=== PATIENT | female | born 1965 | race Caucasian/White ===

== ENCOUNTER 2024-06-24 12:21 | Emergency (ER) | payer MEDICAID ==
[~2024-06-24] VITALS: Ht 167.6 cm; Wt 62.0 kg
[~2024-06-24 12:21] MED LIST: ACET-3161 PO; CIPR-263 PO; FURO40TA5 PO; GABA-532 PO; LEVVL SQ; MULT-278 PO; [UNRECOGNIZED DRUG - CODE] PO
[2024-06-24 12:26] VITALS: TEMP 98; O2SAT 96
[2024-06-24] MEDS ORDERED: LIDOCAINE HCL/EPINEPHRINE 1%-EPI 1:100,000 20 ML VIAL INFIL ONE (13:15)
[2024-06-24] MEDS: SODIUM CHLORIDE 0.9% 1,000 ML IV ONE (13:19)
[2024-06-24] MEDS: ONDANSETRON HCL 4MG/2ML INJ IV ONE (13:19)
[2024-06-24 13:33] LABS: BASOPHILS % 1.3 % (0.0-2.0); EOSINOPHILS % 2.1 % (0.0-5.0); HEMATOCRIT. 35.7 % (36.0-48.0); HEMOGLOBIN. 11.5 g/dL (12.0-16.0); LYMPHOCYTES % 16.5 % (20.0-50.0); MEAN CORPUSCULAR HEMOGLOBIN 29.9 pg (28.0-32.0); MEAN CORPUSCULAR HGB CONC 32.1 g/dL (31.0-37.0); MEAN PLATELET VOLUME 8.5 fl (7.4-10.4); MONOCYTES % 6.8 % (2.0-8.0); NEUTROPHILS % 73.3 % (40.0-76.0); PLATELET 141 x1000/uL (130-400); RED BLOOD CELL COUNT 3.84 mill/uL (4.2-5.4); RED CELL DISTRIBUTION WIDTH 19.4 % (11.6-14.6); WHITE BLOOD COUNT 5.9 x1000/uL (4.5-11.0)
[2024-06-24 13:42] LABS: POTASSIUM 3.9 mEq/L (3.5-5.1)
[2024-06-24 13:47] LABS: INR 0.9; PARTIAL THROMBOPLASTIN TIME < 21.0 sec (23.4-31.0)
[2024-06-24 13:48] LABS: CREATININE 3.2 mg/dL (0.6-1.0)
[2024-06-24 15:00] VITALS: BP 148/52; PULSE 83; RESP 14
== END 2024-06-24 15:49 | disposition home or self-care (01) ==
LOC: ER 12:30
DX: T82.511A Breakdown (mechanical) of surgically created arteriovenous shunt, initial encounter (principal); I12.0 Hypertensive chronic kidney disease with stage 5 chronic kidney disease or end stage renal disease; E11.22 Type 2 diabetes mellitus with diabetic chronic kidney disease; N18.6 End stage renal disease; N28.9 Disorder of kidney and ureter, unspecified; Z88.2 Allergy status to sulfonamides; Z98.890 Other specified postprocedural states
CPT/HCPCS: 80048; 85025; 85610; 85730; 86850; 86900; 86901; 36415; 71045; 93005; 96361; 96374; 99285; J3490; J2405; J7030; Z7610 ×3

== ENCOUNTER 2025-05-03 09:44 | Inpatient (IN) | payer OTHER ==
[~2025-05-03] VITALS: Ht 195.6 cm; Wt 75.3 kg
[~2025-05-03 09:44] MED LIST changes: -CIPR-263 PO; +GABA-1180 PO; -GABA-532 PO
[2025-05-03 12:11] LABS: BASOPHILS % 1.1 % (0.0-2.0); HEMATOCRIT. 32.7 % (36.0-48.0); HEMOGLOBIN. 10.7 g/dL (12.0-16.0); LYMPHOCYTES % 12.6 % (20.0-50.0); MEAN CORPUSCULAR HEMOGLOBIN 32.5 pg (28.0-32.0); MEAN CORPUSCULAR HGB CONC 32.6 g/dL (31.0-37.0); MEAN CORPUSCULAR VOLUME 99.4 fL (81.0-99.0); MEAN PLATELET VOLUME 10.3 fl (7.4-10.4); MONOCYTES % 7.9 % (2.0-8.0); NEUTROPHILS % 73.4 % (40.0-76.0); PLATELET 71 x1000/uL (130-400); RED BLOOD CELL COUNT 3.29 mill/uL (4.2-5.4); RED CELL DISTRIBUTION WIDTH 22.3 % (11.6-14.6); WHITE BLOOD COUNT 4.8 x1000/uL (4.5-11.0)
[2025-05-03 12:17] LABS: ADD RBC MORPHOLOGY YES; DIFFERENTIAL COMMENT 1
[2025-05-03 12:28] LABS: CHLORIDE 93 mEq/L (98-107); SODIUM 140 mEq/L (136-145)
[2025-05-03 12:29] LABS: CARBON DIOXIDE 33 mEq/L (21-32)
[2025-05-03 12:30] LABS: CALCIUM 9.5 mg/dL (8.7-10.4)
[2025-05-03 12:34] LABS: GLUCOSE 104 mg/dL (70-105); UREA NITROGEN BLOOD 52 mg/dL (9-23)
[2025-05-03 12:36] LABS: TROPONIN I HIGH SENSITIVITY 16 ng/L (3.0-34)
[2025-05-03 12:49] LABS: INR 1.2; PROTHROMBIN TIME 12.5 sec (9.6-11.0)
[2025-05-03 12:57] LABS: CREATININE 7.3 mg/dL (0.6-1.0)
[2025-05-03] MEDS: ALBUTEROL (0.083%) 2.5MG/3ML NEB HHN ONE (13:15)
[2025-05-03] MEDS: DEXTROSE 50% WATER 50ML SYRINGE IV ONE (13:32)
[2025-05-03] MEDS: CALCIUM GLUCONATE 100MG/ML 10ML VIAL IV ONE (13:33)
[2025-05-03] MEDS: INSULIN REGULAR (HUMULIN R) 1000UNITS/10ML VIAL IV ONE (13:37)
[2025-05-03] MEDS ORDERED: NALOXONE HCL 0.4MG/ML VIAL IV PRN (15:15)
[2025-05-03] MEDS: HYDROCODONE/ACETAMINOPHEN 5/325MG TABLET PO PRN (15:38)
[2025-05-03 15:40] LABS: TROPONIN I HIGH SENSITIVITY 19 ng/L (3.0-34)
[2025-05-03 17:11] LABS: ANISOCYTOSIS 1+; PLATELET ESTIMATE DECREASED
[2025-05-03 17:40] VITALS: BP 149/66; PULSE 82; RESP 18; TEMP 36.7
[2025-05-03 20:00] VITALS: BP 157/66; PULSE 72; RESP 16; TEMP 36.4; O2SAT 100
[2025-05-03] MEDS: FUROSEMIDE 40MG TABLET PO SCH (21:58)
[2025-05-03] MEDS: GABAPENTIN 100MG CAPSULE PO SCH (21:58)
[2025-05-03] MEDS: ATORVASTATIN CALCIUM 40MG TABLET PO SCH (21:58)
[2025-05-03] MEDS: METOPROLOL TARTRATE 50MG TABLET PO SCH (21:59)
[2025-05-03] MEDS: HYDRALAZINE HCL 50MG TABLET PO SCH (21:59)
[2025-05-03] MEDS: SODIUM ZIRCONIUM CYCLOSILICATE 10GM/PACKET PO NR (21:59)
[2025-05-04] VITALS (14 sets, daily range): BP systolic 126–161; BP diastolic 41–74; PULSE 60–71; RESP 14–19; TEMP 36.1–36.8; O2SAT 81–100
[2025-05-04 00:18] LABS: BASOPHILS % 1.4 % (0.0-2.0); EOSINOPHILS % 4.5 % (0.0-5.0); HEMATOCRIT. 31.3 % (36.0-48.0); HEMOGLOBIN. 10.2 g/dL (12.0-16.0); LYMPHOCYTES % 11.8 % (20.0-50.0); MEAN CORPUSCULAR HEMOGLOBIN 32.4 pg (28.0-32.0); MEAN CORPUSCULAR HGB CONC 32.5 g/dL (31.0-37.0); MEAN CORPUSCULAR VOLUME 99.5 fL (81.0-99.0); MEAN PLATELET VOLUME 11.1 fl (7.4-10.4); MONOCYTES % 7.6 % (2.0-8.0); NEUTROPHILS % 74.7 % (40.0-76.0); PLATELET 62 x1000/uL (130-400); RED BLOOD CELL COUNT 3.15 mill/uL (4.2-5.4); RED CELL DISTRIBUTION WIDTH 21.8 % (11.6-14.6); WHITE BLOOD COUNT 4.5 x1000/uL (4.5-11.0)
[2025-05-04 00:34] LABS: PHOSPHORUS 7.8 mg/dL (2.5-4.9)
[2025-05-04 03:06] LABS: HEPATITIS B SURFACE ANTIGEN NEGATIVE (Negative)
[2025-05-04 03:26] LABS: HEPATITIS A AB IGM NEGATIVE (Negative)
[2025-05-04 03:27] LABS: HEPATITIS B CORE AB IGM NEGATIVE (Negative); HEPATITIS C AB NON REACTIVE (Neg) (Negative)
[2025-05-04] MEDS: SEVELAMER CARBONATE 800 MG TABLET PO SCH (07:48)
[2025-05-04] MEDS: FOLIC ACID/VITAMIN B COMP W-C TABLET PO SCH (11:19)
[2025-05-04] MEDS: CLOPIDOGREL 75MG TABLET PO SCH (11:19)
[2025-05-04] MEDS: AMLODIPINE 10MG TABLET PO SCH (11:20)
[2025-05-04 11:21] LABS: BASOPHILS % 1.2 % (0.0-2.0); EOSINOPHILS % 6.1 % (0.0-5.0); HEMATOCRIT. 35.1 % (36.0-48.0); HEMOGLOBIN. 11.1 g/dL (12.0-16.0); LYMPHOCYTES % 11.5 % (20.0-50.0); MEAN CORPUSCULAR HEMOGLOBIN 31.4 pg (28.0-32.0); MEAN CORPUSCULAR HGB CONC 31.5 g/dL (31.0-37.0); MEAN CORPUSCULAR VOLUME 99.7 fL (81.0-99.0); MEAN PLATELET VOLUME 10.9 fl (7.4-10.4); MONOCYTES % 5.6 % (2.0-8.0); NEUTROPHILS % 75.6 % (40.0-76.0); PLATELET 76 x1000/uL (130-400); RED BLOOD CELL COUNT 3.52 mill/uL (4.2-5.4); RED CELL DISTRIBUTION WIDTH 21.8 % (11.6-14.6); WHITE BLOOD COUNT 4.2 x1000/uL (4.5-11.0)
[2025-05-04 12:26] LABS: CARBON DIOXIDE 30 mEq/L (21-32); CHLORIDE 98 mEq/L (98-107); POTASSIUM 4.4 mEq/L (3.5-5.1); SODIUM 142 mEq/L (136-145)
[2025-05-04 12:27] LABS: CALCIUM 10.2 mg/dL (8.7-10.4)
[2025-05-04 12:31] LABS: IRON 81 ug/dL (50-170)
[2025-05-04 12:32] LABS: GLUCOSE 94 mg/dL (70-105); UREA NITROGEN BLOOD 34 mg/dL (9-23)
[2025-05-04 12:34] LABS: CREATINE KINASE 103 IU/L (34-145); TOTAL IRON BINDING CAPACITY 309 ug/dl (250-425)
[2025-05-04 12:36] LABS: T4 FREE 1.13 ng/dL (0.89-1.76); THYROID STIMULATING HORMONE 4.51 uIU/mL (0.55-4.78)
[2025-05-04 13:49] LABS: CREATININE 5.5 mg/dL (0.6-1.0)
[2025-05-04 14:11] LABS: FERRITIN 618 ng/mL (10-291); FOLIC ACID (FOLATE) SERUM > 20.00 ng/mL (>5.38)
[2025-05-04 14:19] LABS: VITAMIN B12 SERUM > 2000 pg/mL (211-911)
[2025-05-05] VITALS: BP 123/58; PULSE 65; RESP 18; TEMP 36.5; O2SAT 84
[2025-05-05 04:00] VITALS: BP 117/44; PULSE 59; RESP 18; TEMP 36.5; O2SAT 86
[2025-05-05 06:48] LABS: BASOPHILS % 1.1 % (0.0-2.0); DIFFERENTIAL COMMENT 0; EOSINOPHILS % 9.7 % (0.0-5.0); HEMATOCRIT. 26.9 % (36.0-48.0); HEMOGLOBIN. 8.5 g/dL (12.0-16.0); LYMPHOCYTES % 11.7 % (20.0-50.0); MEAN CORPUSCULAR HEMOGLOBIN 31.8 pg (28.0-32.0); MEAN CORPUSCULAR HGB CONC 31.7 g/dL (31.0-37.0); MEAN CORPUSCULAR VOLUME 100.2 fL (81.0-99.0); MEAN PLATELET VOLUME 10.5 fl (7.4-10.4); MONOCYTES % 8.4 % (2.0-8.0); NEUTROPHILS % 69.1 % (40.0-76.0); PLATELET 65 x1000/uL (130-400); RED BLOOD CELL COUNT 2.68 mill/uL (4.2-5.4); RED CELL DISTRIBUTION WIDTH 21.5 % (11.6-14.6); WHITE BLOOD COUNT 3.4 x1000/uL (4.5-11.0)
[2025-05-05 07:02] LABS: POTASSIUM 4.9 mEq/L (3.5-5.1)
[2025-05-05 07:04] LABS: CALCIUM 9.5 mg/dL (8.7-10.4)
[2025-05-05 07:17] LABS: CREATININE 7.1 mg/dL (0.6-1.0)
[2025-05-05 08:00] VITALS: BP 135/41; PULSE 69; RESP 18; TEMP 36.5
[2025-05-05 12:00] VITALS: BP 155/80; PULSE 69; RESP 18; TEMP 36.6
[2025-05-05 16:00] VITALS: BP 141/51; PULSE 75; RESP 18; TEMP 36.4
[2025-05-05 20:00] VITALS: PULSE 79; RESP 18; TEMP 36.7; O2SAT 92
[2025-05-05] MEDS: ZOLPIDEM TARTRATE 5MG TABLET PO PRN (21:19)
[2025-05-06] VITALS (12 sets, daily range): BP systolic 110–158; BP diastolic 41–61; PULSE 63–70; RESP 16–19; TEMP 36.16956–36.6; O2SAT 95–99
[2025-05-07 00:30] VITALS: BP 149/60; PULSE 74; RESP 19
== END 2025-05-07 01:00 | disposition home health service (06) | DRG 425 ==
LOC: ER 09:44 → EDBEDREQ 13:08 → EDBEDREQTM 13:08 → ENRESERV 16:37 → 5WST 17:17
PROVIDERS: ADMIT Internal Medicine; ATTEND Internal Medicine
PROC: 5A1D70Z Performance of Urinary Filtration, Intermittent, Less than 6 Hours Per Day (ICD-10-PCS; principal; 2025-05-04)
PROC: 5A1D70Z Performance of Urinary Filtration, Intermittent, Less than 6 Hours Per Day (ICD-10-PCS; 2025-05-06)
DX: E87.5 Hyperkalemia (principal); D69.6 Thrombocytopenia, unspecified; J90 Pleural effusion, not elsewhere classified; I12.0 Hypertensive chronic kidney disease with stage 5 chronic kidney disease or end stage renal disease; E83.39 Other disorders of phosphorus metabolism; N18.6 End stage renal disease; E11.22 Type 2 diabetes mellitus with diabetic chronic kidney disease; D53.9 Nutritional anemia, unspecified; I44.0 Atrioventricular block, first degree; M85.88 Other specified disorders of bone density and structure, other site; E11.42 Type 2 diabetes mellitus with diabetic polyneuropathy; I25.10 Atherosclerotic heart disease of native coronary artery without angina pectoris; Z91.158 Patient's noncompliance with renal dialysis for other reason; Z99.2 Dependence on renal dialysis; Z88.8 Allergy status to other drugs, medicaments and biological substances
CPT/HCPCS: 36415; 71045; 73630; 80048; 80061; 82550; 82607; 82728; 82746; 82962; 83540; 83550; 84100; 84145; 84439; 84443; 84484; 85025; 86705; 86709; 86850; 86900; 87340; 90935; 93005; 97162; 99291; A4606; J0610; J1815